=== PATIENT | female | born 1990 | race Caucasian/White ===

== ENCOUNTER 2017-06-17 19:20 | Emergency (ER) | payer MEDICAID, OTHER ==
[~2017-06-17 19:20] MED LIST: IBUP800T23 PO
[2017-06-17 19:21] VITALS: BP 134/82; PULSE 102; RESP 16; TEMP 99.2; O2SAT 99
--- NOTE | 2017-06-17 19:58 | PD ---
HPI Chief Complaint: Balancer Problem/Complaint Time Seen by Provider: 19:46 Travel History International Travel<30 days: No Contact w/Intl Traveler<30days: No Traveled to known affect area: No History of Present Illness HPI 26-year-old female presents to the emergency department for evaluation of vaginal bleeding during . Patient states she is approximately 5 weeks based on her menstrual cycle. She states that today around 1 PM she started noticing bleeding when urinating. The patient states she has a G4, P1 with 2 previous abortions. Patient reports some mild abdominal cramping, currently 1/10 without radiation. She has no medical problems and takes no prescribed medications. Moderate severity. No exacerbating or alleviating factors. Patient's blood type is O+. The patient states this as well as it is found in the chart. PFSH Past Medical History Diminished Hearing: No Immunizations Current: Yes ?: LMP: 05/13/2017 Past Surgical History Other Surgery: Yes (BREAST AUG) Social History Alcohol Use: No Tobacco Use: Yes (1 PACK/ WEEK) Substance Use: No Allergies-Medications (Allergen,Severity, Reaction): Coded Allergies: erythromycin base (Unverified Allergy, Severe, 02/28/17) amoxicillin (Unverified Allergy, Mild, RASH, 02/28/17) bee venom protein (honey bee) (Unverified Allergy, Mild, EDEMA, 02/28/17) cefepime (Unverified Allergy, Mild, RASH, 02/28/17) ceftaroline fosamil (Unverified Allergy, Mild, RASH, 02/28/17) clavulanic acid (Unverified Allergy, Mild, RASH, 02/28/17) penicillin G (Unverified Allergy, Mild, RASH, 02/28/17) Reported Meds & Prescriptions Reported Meds & Active Scripts Active Ibuprofen 800 Mg Tab 800 Mg PO TID PRN Review of Systems Except as stated in HPI: all other systems reviewed are Neg Physical Exam Narrative GENERAL: Well-nourished, well-developed female patient, ambulatory. Afebrile. SKIN: Focused skin assessment warm/dry. HEAD: Normocephalic. Atraumatic. EYES: No scleral icterus. No injection or drainage. NECK: Supple, trachea midline. No JVD or lymphadenopathy. CARDIOVASCULAR: Regular rate and rhythm without murmurs, gallops, or rubs. RESPIRATORY: Breath sounds equal bilaterally. No accessory muscle use. Lungs sounds are clear to auscultation. GASTROINTESTINAL: Abdomen soft, non-tender, nondistended. MUSCULOSKELETAL: No cyanosis, or edema. GENITOURINARY: Normal external genitalia without lesions or erythema. Vaginal vault with blood noted. Cervical os with blood noted. No cervical motion tenderness. Uterus nontender and nonenlarged. Bilateral adnexa nontender without masses. This exam was done with RN at bedside. Data Data Last Documented VS Vital Signs Date Time Temp Pulse Resp B/P (MAP) Pulse Ox O2 Delivery O2 Flow Rate FiO2 06/17/17 20:25 85 18 101/64 (76) 100 Room Air 06/17/17 19:21 99.2 Orders Orders Beta Hcg (Quant/Titer) (06/17/17 19:56) Complete Blood Count With Diff (06/17/17 19:56) Basic Metabolic Panel (Bmp) (06/17/17 19:56) Urinalysis - C+S If Indicated (06/17/17 19:56) Ed Urine Pregnancytest Poc (06/17/17 19:56) Us Pelvis (Ques Pr/Ect)W Trans (06/17/17 ) Labs Laboratory Tests Test 06/17/17 20:15 White Blood Count 6.9 TH/MM3 Red Blood Count 4.07 MIL/MM3 Hemoglobin 14.1 GM/DL Hematocrit 40.6 % Mean Corpuscular Volume 99.9 FL Mean Corpuscular Hemoglobin 34.7 PG Mean Corpuscular Hemoglobin Concent 34.8 % Red Cell Distribution Width 12.3 % Platelet Count 181 TH/MM3 Mean Platelet Volume 8.6 FL Neutrophils (%) (Auto) 52.9 % Lymphocytes (%) (Auto) 36.0 % Monocytes (%) (Auto) 9.6 % Eosinophils (%) (Auto) 1.1 % Basophils (%) (Auto) 0.4 % Neutrophils # (Auto) 3.6 TH/MM3 Lymphocytes # (Auto) 2.5 TH/MM3 Monocytes # (Auto) 0.7 TH/MM3 Eosinophils # (Auto) 0.1 TH/MM3 Basophils # (Auto) 0.0 TH/MM3 CBC Comment DIFF FINAL Differential Comment Blood Urea Nitrogen 6 MG/DL Creatinine 0.72 MG/DL Random Glucose 74 MG/DL Calcium Level 8.8 MG/DL Sodium Level 140 MEQ/L Potassium Level 3.7 MEQ/L Chloride Level 106 MEQ/L Carbon Dioxide Level 29.0 MEQ/L Anion Gap 5 MEQ/L Estimat Glomerular Filtration Rate 100 ML/MIN Human Chorionic Gonadotropin, Quant 24 MIU/ML MDM Medical Decision Making Medical Screen Exam Complete: Yes Emergency Medical Condition: Yes Medical Record Reviewed: Yes Interpretation(s) US - CONCLUSION: Possible spontaneous . No perceptible intrauterine . Small free fluid, nonspecific. Ovaries within normal limits. No evidence of an ectopic. Differential Diagnosis Intrauterine versus threatened versus spontaneous versus ectopic Narrative Course 26-year-old female presents to the emergency Department treatment we should bleeding during . She reports being approximately 5 weeks . IV access established. CBC, BMP, beta hCG, UA, urine test are ordered and pending. Pelvic ultrasound is ordered and pending. CBC shows no acute abnormality. BMP shows no acute abnormality. Beta hCG is 24. Ultrasound shows possible spontaneous . No perceptible intrauterine . Small free fluid, nonspecific. Ovaries within normal limits. No evidence of an ectopic. I discussed the results with the patient. She is instructed to follow up with an cycle specialist. She verbalizes agreement and understanding. The patient was discharged in stable condition with instructions, including return instructions and follow up instructions. Diagnosis Primary Impression: Spontaneous Referrals: [facility] call for appointment Patient Instructions: General Instructions, Miscarriage (ED) Additional Instructions: Follow-up with an cycle specialist. [id number] Tylenol or ibuprofen as needed for pain. Return to the emergency department for any acute worsening of symptoms. Med/Other Pt SpecificInfo: No Change to Meds Disposition: 01 DISCHARGE HOME Condition: Stable Kaylen Butt Jun 17, 2017 19:58
[2017-06-17 20:25] VITALS: BP 101/64; PULSE 85; RESP 18; O2SAT 100
[2017-06-17 20:46] LABS: AUTOMATED NEUTROPHIL # 3.6 TH/MM3 (1.8-7.7); BASOPHIL % 0.4 % (0.0-2.0); EOSINOPHIL # 0.1 TH/MM3 (0-0.4); EOSINOPHIL % 1.1 % (0.0-4.0); HEMATOCRIT 40.6 % (35.0-46.0); HEMO FLAGS DIFF FINAL; LYMPHOCYTE # 2.5 TH/MM3 (1.0-4.8); MEAN CELL VOLUME 99.9 FL (80.0-100.0); MEAN CORPUSCULAR HEMOGLOBIN 34.7 PG (27.0-34.0); MEAN CORPUSCULAR HGB CONC 34.8 % (32.0-36.0); MONO % 9.6 % (0.0-8.0); NEUT % 52.9 % (16.0-70.0); PLATELET COUNT 181 TH/MM3 (150-450); RED BLOOD COUNT 4.07 MIL/MM3 (4.00-5.30); RED CELL DISTRIBUTION WIDTH 12.3 % (11.6-17.2); WHITE BLOOD COUNT 6.9 TH/MM3 (4.0-11.0)
[2017-06-17 20:58] LABS: POTASSIUM 3.7 MEQ/L (3.5-5.1)
--- NOTE | 2017-06-17 21:46 | RADRPT ---
EXAM DATE/TIME: 06/17/2017 20:54 [facility] COMPARISON: No previous studies available for comparison. INDICATIONS : Pelvic pain/bleeding LAB(S): Beta-hC MEDICAL HISTORY : Tobacco use. SURGICAL HISTORY : Surgery on wrist. Breast augmentation. ENCOUNTER: Initial ACUITY: 2 days PAIN SCORE: 1/10 LOCATION: Bilateral pelvis MEASUREMENTS: UTERUS: 8.8 x 5.1 x 4.4 cm ENDOMETRIAL STRIPE: 3 mm RIGHT OVARY: 3.3 x 1.7 x 2.1 cm LEFT OVARY: 2.6 x 1.5 x 1.4 cm FREE FLUID: Yes FINDINGS: UTERUS: The myometrium has homogeneous echotexture without mass. No perceptible IVP. RIGHT OVARY: Ovary contains no mass or significant cystic lesion. LEFT OVARY: Ovary contains no mass or significant cystic lesion. MISCELLANEOUS: Small free fluid. CONCLUSION: Possible spontaneous . No perceptible intrauterine . Small free fluid, nonspecific. Ovaries within normal limits. No evidence of an ectopic. Anson Bennett MD on June 17, 2017 at 21:42 Board Certified Radiologist. This report was verified electronically.
[2017-06-17 22:05] VITALS: BP 112/68; PULSE 89; RESP 16; O2SAT 99
== END 2017-06-17 22:12 | disposition home or self-care (01) ==
LOC: NEPC 19:20
DX: O03.9 Complete or unspecified spontaneous abortion without complication (principal); R10.9 Unspecified abdominal pain; Z72.0 Tobacco use; Z3A.01 Less than 8 weeks gestation of pregnancy
CPT/HCPCS: 76700; 76817; 80048; 84702; 84703; 85025; 99284